=== PATIENT | female | born 1995 | race Two or more races ===

== ENCOUNTER 2020-08-18 09:16 | Day surgery (SDC) | payer OTHER ==
[~2020-08-18 09:16] MED LIST: CANABIS
== END 2020-08-18 20:15 | disposition home or self-care (01) ==
LOC: CIR.AMB 09:16
PROVIDERS: ATTEND Specialist
DX: N85.01 Benign endometrial hyperplasia (principal); Z20.822 Contact with and (suspected) exposure to COVID-19